=== PATIENT | male | born 1940 | race Caucasian/White ===

== ENCOUNTER 2016-10-26 08:32 | Outpatient (CLI) | payer MEDICARE, OTHER | END 2016-10-26 08:33 | disposition home or self-care (01) | DX: I77.811 Abdominal aortic ectasia (principal); D12.6 Benign neoplasm of colon, unspecified; D64.9 Anemia, unspecified; N18.3 Chronic kidney disease, stage 3 (moderate); M10.00 Idiopathic gout, unspecified site; E78.5 Hyperlipidemia, unspecified; R73.01 Impaired fasting glucose; D50.9 Iron deficiency anemia, unspecified; I65.29 Occlusion and stenosis of unspecified carotid artery; I10 Essential (primary) hypertension ==

== ENCOUNTER 2017-02-08 07:24 | Outpatient (CLI) | payer MEDICARE, OTHER ==
[2017-02-08 08:00] LABS: CALCIUM 9.5 mg/dL (8.5-10.3); CREATININE 1.3 mg/dL (0.6-1.2); POTASSIUM 4.3 mmol/L (3.5-5.0)
[2017-02-08 08:02] LABS: HEMOGLOBIN A1C 0.5 g/dL
== END 2017-02-08 07:25 | disposition home or self-care (01) ==
LOC: LAB 07:24
PROVIDERS: ATTEND Internal Medicine
DX: Z00.00 Encounter for general adult medical examination without abnormal findings (principal); E11.9 Type 2 diabetes mellitus without complications; I12.9 Hypertensive chronic kidney disease with stage 1 through stage 4 chronic kidney disease, or unspecified chronic kidney disease; N18.3 Chronic kidney disease, stage 3 (moderate); M10.00 Idiopathic gout, unspecified site; E78.5 Hyperlipidemia, unspecified; I65.29 Occlusion and stenosis of unspecified carotid artery
CPT/HCPCS: 36415; 80048; 83036

== ENCOUNTER 2017-07-24 07:26 | Outpatient (CLI) | payer MEDICARE, OTHER ==
[2017-07-24 07:46] LABS: CALCIUM 9.8 mg/dL (8.5-10.3)
[2017-07-24 07:55] LABS: HB2 TOTAL 13.3 g/dL; HEMOGLOBIN A1C 0.49 g/dL; HEMOGLOBIN A1C % 5.5 % (4.6-6.2)
== END 2017-07-24 07:27 | disposition home or self-care (01) ==
LOC: LAB 07:26
PROVIDERS: ATTEND Internal Medicine
DX: E11.22 Type 2 diabetes mellitus with diabetic chronic kidney disease (principal); N18.3 Chronic kidney disease, stage 3 (moderate)
CPT/HCPCS: 36415; 80048; 83036

== ENCOUNTER 2017-08-20 07:31 | Outpatient (CLI) | payer MEDICARE, OTHER ==
[2017-08-20 07:57] LABS: CALCIUM 9.2 mg/dL (8.5-10.3); CREATININE 1.2 mg/dL (0.6-1.2)
== END 2017-08-20 07:32 | disposition home or self-care (01) ==
LOC: LAB 07:31
PROVIDERS: ATTEND Internal Medicine
DX: I77.811 Abdominal aortic ectasia (principal); D64.9 Anemia, unspecified; I12.9 Hypertensive chronic kidney disease with stage 1 through stage 4 chronic kidney disease, or unspecified chronic kidney disease; N18.3 Chronic kidney disease, stage 3 (moderate); E11.9 Type 2 diabetes mellitus without complications; M10.00 Idiopathic gout, unspecified site; E78.5 Hyperlipidemia, unspecified; I65.29 Occlusion and stenosis of unspecified carotid artery
CPT/HCPCS: 36415; 80048

== ENCOUNTER 2017-10-12 08:12 | Outpatient (CLI) | payer MEDICARE, OTHER ==
[2017-10-12 08:24] LABS: BASOPHILS # (AUTO) 0.1 10^3/uL (0.0-0.1); BASOPHILS % (AUTO) 0.7 %; EOSINOPHILS # (AUTO) 0.3 10^3/uL (0.0-0.7); EOSINOPHILS % (AUTO) 3.3 %; HGB - HEMOGLOBIN 12.5 g/dL (14.0-18.0); LYMPHOCYTES # (AUTO) 2.5 10^3/uL (1.5-3.5); LYMPHOCYTES % (AUTO) 29.2 %; MEAN CORPUSCULAR HEMOGLOBIN 30.7 pg (27.0-31.0); MEAN CORPUSCULAR HGB CONC 33.5 g/dL (32.0-36.0); MEAN CORPUSCULAR VOLUME 91.9 fL (80.0-94.0); MEAN PLATELET VOLUME 8.6 fL (7.4-11.4); MONOCYTES # (AUTO) 0.8 10^3/uL (0.0-1.0); MONOCYTES % (AUTO) 9.8 %; NEUTROPHILS # (AUTO) 4.9 10^3/uL (1.5-6.6); PLT - PLATELET COUNT 186 10^3/uL (130-450); RED BLOOD COUNT 4.07 10^6/uL (4.70-6.10); RED CELL DISTRIBUTION WIDTH 14.5 % (12.0-15.0); WHITE BLOOD COUNT 8.6 x10^3/uL (4.8-10.8)
[2017-10-12 08:38] LABS: CREATININE,URINE 138.3 mg/dL; MICROALBUMIN,URINE 2.9 mg/dL (0-300.0)
[2017-10-12 08:40] LABS: HB2 TOTAL 13.3 g/dL; HEMOGLOBIN A1C 0.51 g/dL; HEMOGLOBIN A1C % 5.7 % (4.6-6.2)
[2017-10-12 08:41] LABS: BUN - BLOOD UREA NITROGEN 26 mg/dL (6-20); CALCIUM 9.3 mg/dL (8.5-10.3); CARBON DIOXIDE - CO2 26 mmol/L (21-32); CHLORIDE 103 mmol/L (101-111); CHOL/HDL RATIO 4.5 (<5.0); CHOLESTEROL 121 mg/dL; CREATININE 1.1 mg/dL (0.6-1.2); GFR - MDRD 65 (>89); GLUCOSE 108 mg/dL (70-100); HDL CHOLESTEROL 27 mg/dL; LDL CHOLESTEROL,CALCULATED 62 mg/dL; LDL/HDL RATIO 2.3 (<3.6); SODIUM 135 mmol/L (135-145); URIC ACID 5.1 mg/dL (2.6-7.2); VLDL CHOLESTEROL 32 mg/dL
== END 2017-10-12 08:13 | disposition home or self-care (01) ==
LOC: LAB 08:12
PROVIDERS: ATTEND Internal Medicine
DX: I77.811 Abdominal aortic ectasia (principal); D64.9 Anemia, unspecified; E11.22 Type 2 diabetes mellitus with diabetic chronic kidney disease; I12.9 Hypertensive chronic kidney disease with stage 1 through stage 4 chronic kidney disease, or unspecified chronic kidney disease; N18.3 Chronic kidney disease, stage 3 (moderate); E78.5 Hyperlipidemia, unspecified; I65.29 Occlusion and stenosis of unspecified carotid artery; M10.00 Idiopathic gout, unspecified site
CPT/HCPCS: 36415; 80048; 80061; 82043; 82570; 83036; 83721; 84550; 85025

== ENCOUNTER 2018-04-12 11:25 | Outpatient (CLI) | payer MEDICARE, OTHER ==
[2018-04-12 12:25] LABS: HB2 TOTAL 12.9 g/dL; HEMOGLOBIN A1C 0.51 g/dL; HEMOGLOBIN A1C % 5.8 % (4.6-6.2)
== END 2018-04-12 11:26 | disposition home or self-care (01) ==
LOC: LAB 11:25
PROVIDERS: ATTEND Internal Medicine
DX: Z00.00 Encounter for general adult medical examination without abnormal findings (principal); I77.811 Abdominal aortic ectasia; E11.22 Type 2 diabetes mellitus with diabetic chronic kidney disease; I12.9 Hypertensive chronic kidney disease with stage 1 through stage 4 chronic kidney disease, or unspecified chronic kidney disease; N18.3 Chronic kidney disease, stage 3 (moderate); M10.00 Idiopathic gout, unspecified site; E78.5 Hyperlipidemia, unspecified; I65.29 Occlusion and stenosis of unspecified carotid artery
CPT/HCPCS: 36415; 83036

== ENCOUNTER 2018-11-08 08:12 | Outpatient (CLI) | payer MEDICARE, OTHER ==
[2018-11-08 08:37] LABS: BASOPHILS % (AUTO) 0.6 %; EOSINOPHILS # (AUTO) 0.3 10^3/uL (0.0-0.7); EOSINOPHILS % (AUTO) 3.9 %; HGB - HEMOGLOBIN 12.3 g/dL (14.0-18.0); LYMPHOCYTES # (AUTO) 2.1 10^3/uL (1.5-3.5); LYMPHOCYTES % (AUTO) 29.4 %; MEAN CORPUSCULAR HEMOGLOBIN 30.2 pg (27.0-31.0); MEAN CORPUSCULAR HGB CONC 32.8 g/dL (32.0-36.0); MEAN CORPUSCULAR VOLUME 91.9 fL (80.0-94.0); MEAN PLATELET VOLUME 8.9 fL (7.4-11.4); MONOCYTES # (AUTO) 0.8 10^3/uL (0.0-1.0); MONOCYTES % (AUTO) 11.5 %; NEUTROPHILS # (AUTO) 3.9 10^3/uL (1.5-6.6); NEUTROPHILS % (AUTO) 54.6 %; PLT - PLATELET COUNT 195 10^3/uL (130-450); RED BLOOD COUNT 4.07 10^6/uL (4.70-6.10); RED CELL DISTRIBUTION WIDTH 14.5 % (12.0-15.0); WHITE BLOOD COUNT 7.2 x10^3/uL (4.8-10.8)
[2018-11-08 08:40] LABS: CREATININE,URINE 90.4 mg/dL; MICROALBUM/CREATININE RATIO,UR 50.9 ug/mg (<30.0); MICROALBUMIN,URINE 4.6 mg/dL (0-300.0)
[2018-11-08 08:46] LABS: BUN - BLOOD UREA NITROGEN 24 mg/dL (6-20); CALCIUM 9.3 mg/dL (8.5-10.3); CARBON DIOXIDE - CO2 25 mmol/L (21-32); CHLORIDE 102 mmol/L (101-111); CHOL/HDL RATIO 3.2 (<5.0); CHOLESTEROL 109 mg/dL; CREATININE 1.3 mg/dL (0.6-1.2); GFR - MDRD 53 (>89); GLUCOSE 97 mg/dL (70-100); HDL CHOLESTEROL 34 mg/dL; LDL CHOLESTEROL,CALCULATED 53 mg/dL; LDL/HDL RATIO 1.6 (<3.6); SODIUM 137 mmol/L (135-145); VLDL CHOLESTEROL 22 mg/dL
[2018-11-08 09:52] LABS: HB2 TOTAL 13.1 g/dL; HEMOGLOBIN A1C 0.47 g/dL; HEMOGLOBIN A1C % 5.4 % (4.6-6.2)
== END 2018-11-08 08:13 | disposition home or self-care (01) ==
LOC: LAB 08:12
PROVIDERS: ATTEND Internal Medicine
DX: I77.811 Abdominal aortic ectasia (principal); D64.9 Anemia, unspecified; N18.3 Chronic kidney disease, stage 3 (moderate); E11.22 Type 2 diabetes mellitus with diabetic chronic kidney disease; M10.00 Idiopathic gout, unspecified site; E78.5 Hyperlipidemia, unspecified; I65.29 Occlusion and stenosis of unspecified carotid artery; I12.9 Hypertensive chronic kidney disease with stage 1 through stage 4 chronic kidney disease, or unspecified chronic kidney disease
CPT/HCPCS: 36415; 80048; 80061; 82043; 82570; 82728; 83036; 83721; 84550; 85025

== ENCOUNTER 2019-05-13 09:44 | Outpatient (CLI) | payer MEDICARE, OTHER ==
[2019-05-13 12:14] LABS: HB2 TOTAL 12.8 g/dL; HEMOGLOBIN A1C 0.53 g/dL; HEMOGLOBIN A1C % 5.9 % (4.6-6.2)
== END 2019-05-13 09:45 | disposition home or self-care (01) ==
LOC: LAB 09:44
PROVIDERS: ATTEND Internal Medicine
DX: E11.9 Type 2 diabetes mellitus without complications (principal)
CPT/HCPCS: 36415; 83036

== ENCOUNTER 2019-05-14 21:40 | Emergency (ER) | payer MEDICARE, OTHER ==
--- NOTE | 2019-05-14 21:49 | ED Physician Documentation ---
History of Present Illness - Stated complaint Stated Complaint: BP CONCERN - Chief complaint Chief Complaint: Cardiac - History obtained from History obtained from: Patient - History of Present Illness Timing: Today Pain level max: 0 Pain level now: 0 - Additonal information Additional information: patient measured his blood pressure this evening and had repeated readings in the 190s-210s; he cannot recall the diastolic readings. He says he was instructed by his doctor to regularly measure his blood pressure but admits he hasn't been doing this. He is asymptomatic, and specifically denies chest pain, dyspnea, headache, visual changes, numbness, weakness. He has an appointment with his PMD tomorrow. He denies missing doses of his antihypertensive medication Review of Systems Cardiac: reports: Reviewed and negative Respiratory: denies: Dyspnea Neurologic: reports: Reviewed and negative PD PAST MEDICAL HISTORY - Past Medical History Cardiovascular: Hypertension, High cholesterol, Other Respiratory: None Endocrine/Autoimmune: None GI: Colon polyps : None HEENT: None Psych: None Musculoskeletal: None Derm: None - Past Surgical History General: Colonoscopy, Other - Present Medications Home Medications: Ambulatory Orders Medication Instructions Recorded Confirmed Allopurinol [Zyloprim] 1 ea PO DAILY 06/02/15 06/02/15 Aspirin Chewable [[place] 1 ea PO DAILY 06/02/15 06/02/15 Aspirin] Atorvastatin [Lipitor] 1 ea PO DAILY 06/02/15 06/02/15 Iron,Carbonyl/Vit C/Vit B12/FA 1 ea PO DAILY 06/02/15 06/02/15 [Iron 100 Plus Tablet] Lisinopril/Hydrochlorothiazide 1 ea PO DAILY 06/02/15 06/02/15 [Lisinopril-Hctz 10-12.5 mg Tab] - Allergies Allergies/Adverse Reactions: Allergies Allergy/AdvReac Type Severity Reaction Status Date / Time No Known Drug Allergies Allergy Verified 05/14/19 21:42 PD ED PE NORMAL - Vitals Vital signs reviewed: Yes - General General: Alert and oriented X 3, No acute distress, Well developed/nourished - Cardiac Cardiac: RRR, No murmur, No gallop, No rub - Respiratory Respiratory: No respiratory distress, Clear bilaterally - Neuro Neuro: Alert and oriented X 3, produce sorter 2-12 intact, No motor deficit, No sensory deficit, Normal speech Results - Vitals Vitals: Vital Signs - 24 hr 05/14/19 05/14/19 21:42 22:15 Temperature 36.7 C Heart Rate 58 L 74 Respiratory 16 16 Rate Blood Pressure 196/58 H 189/83 H O2 Saturation 100 98 Oxygen O2 Source Room air PD MEDICAL DECISION MAKING - ED course Complexity details: considered differential, d/w patient, d/w family Departure - Departure Disposition: 01 Home, Self Care Clinical Impression: Hypertension Condition: Good Instructions: ED Hypertension Conf Out Of Control Follow-Up: Wolf Perez MD [Primary Care Provider] - Tomorrow Discharge Date/Time: 05/14/19 22:31
[2019-05-14 22:17] VITALS: BP 189/83
[2019-05-14] MEDS ORDERED: amLODIPine 5 MG TABLET PO STA (22:23)
== END 2019-05-14 22:31 | disposition home or self-care (01) ==
LOC: ED 21:40
DX: I10 Essential (primary) hypertension (principal); E78.00 Pure hypercholesterolemia, unspecified
CPT/HCPCS: 99282; A9270

== ENCOUNTER 2020-09-03 08:00 | Outpatient (CLI) | payer MEDICARE, OTHER ==
[2020-09-03 12:09] LABS: ESTIMATED AVERAGE GLUCOSE 117 mg/dL (70-100); HEMOGLOBIN A1c% 5.7 % (4.27-6.07)
== END 2020-09-03 23:59 | disposition home or self-care (01) ==
LOC: LAB 08:00
PROVIDERS: ATTEND Internal Medicine
DX: E11.9 Type 2 diabetes mellitus without complications (principal)
CPT/HCPCS: 36415; 83036

== ENCOUNTER 2020-10-16 10:04 | Outpatient (CLI) | payer MEDICARE, OTHER ==
--- NOTE | 2020-10-16 11:41 | XRAY Report ---
PROCEDURE: Hand 3 View RT INDICATIONS: CONTUSION OF RT INDEX FINGER TECHNIQUE: 3 views of the hand(s) acquired. COMPARISON: None. FINDINGS: Bones: No fractures or dislocations. No suspicious bony lesions. And osteophyte formation through out the interphalangeal joints as well as the second metacarpophalangeal joint and first carpometacar pal joint. Soft tissues: No suspicious soft tissue calcifications. No radiopaque foreign body. IMPRESSION: No acute bony abnormality or radiopaque foreign body. Degenerative changes of the hand. Reviewed by: Que Padilla on 10/16/2020 10:40 AM [facility] Approved by: Que Padilla on 10/16/2020 10:40 AM [facility] Station ID: [id number]
== END 2020-10-16 23:59 | disposition home or self-care (01) ==
LOC: DI.N 10:04
PROVIDERS: ATTEND Physician Assistant Medical
DX: S60.021A Contusion of right index finger without damage to nail, initial encounter (principal)

== ENCOUNTER 2021-01-27 10:08 | Outpatient (CLI) | payer MEDICARE, OTHER ==
[2021-01-27 10:41] LABS: BUN - BLOOD UREA NITROGEN 17 mg/dL (6-20); CALCIUM 9.5 mg/dL (8.5-10.3); CARBON DIOXIDE - CO2 25 mmol/L (21-32); CHLORIDE 105 mmol/L (101-111); CHOL/HDL RATIO 3.9 (<5.0); CHOLESTEROL 114 mg/dL; CREATININE 1.2 mg/dL (0.6-1.2); GFR - MDRD 58 (>89); GLUCOSE 118 mg/dL (70-100); HDL CHOLESTEROL 29 mg/dL; LDL CHOLESTEROL,CALCULATED 61 mg/dL; LDL/HDL RATIO 2.1 (<3.6); POTASSIUM 4.4 mmol/L (3.5-5.0); SODIUM 139 mmol/L (135-145); TRIGLYCERIDES 119 mg/dL; URIC ACID 4.4 mg/dL (2.6-7.2); VLDL CHOLESTEROL 24 mg/dL
[2021-01-27 11:19] LABS: CREATININE,URINE 269.1 mg/dL; MICROALBUM/CREATININE RATIO,UR 331.1 ug/mg (<30.0); MICROALBUMIN,URINE 89.1 mg/dL (0-300.0)
[2021-01-27 11:55] LABS: ESTIMATED AVERAGE GLUCOSE 123 mg/dL (70-100); HEMOGLOBIN A1c% 5.9 % (4.27-6.07)
== END 2021-01-27 10:09 | disposition home or self-care (01) ==
LOC: LAB 10:08
PROVIDERS: ATTEND Internal Medicine
DX: E11.22 Type 2 diabetes mellitus with diabetic chronic kidney disease (principal); N18.30 Chronic kidney disease, stage 3 unspecified; E78.5 Hyperlipidemia, unspecified; M10.9 Gout, unspecified
CPT/HCPCS: 36415; 80048; 80061; 82043; 82570; 83036; 83721; 84550

== ENCOUNTER 2021-08-16 08:13 | Outpatient (CLI) | payer MEDICARE, OTHER ==
[2021-08-16 08:40] LABS: CREATININE,URINE 100.5 mg/dL; MICROALBUM/CREATININE RATIO,UR 172.1 ug/mg (<30.0); MICROALBUMIN,URINE 17.3 mg/dL (0-300.0)
[2021-08-16 08:42] LABS: CALCIUM 9.6 mg/dL (8.5-10.3); CREATININE 1.2 mg/dL (0.6-1.2); POTASSIUM 4.3 mmol/L (3.5-5.0)
[2021-08-16 11:19] LABS: ESTIMATED AVERAGE GLUCOSE 114 mg/dL (70-100); HEMOGLOBIN A1c% 5.6 % (4.27-6.07)
== END 2021-08-16 08:14 | disposition home or self-care (01) ==
LOC: LAB 08:13
PROVIDERS: ATTEND Internal Medicine
DX: E11.9 Type 2 diabetes mellitus without complications (principal)
CPT/HCPCS: 36415; 80048; 82043; 82570; 83036

== ENCOUNTER 2022-02-09 13:04 | Outpatient (CLI) | payer MEDICARE, OTHER ==
[2022-02-09 13:21] LABS: BASOPHILS % (AUTO) 0.5 %; EOSINOPHILS # (AUTO) 0.3 10^3/uL (0.0-0.7); EOSINOPHILS % (AUTO) 3.7 %; HCT - HEMATOCRIT 33.4 % (42.0-52.0); HGB - HEMOGLOBIN 11.3 g/dL (14.0-18.0); LYMPHOCYTES # (AUTO) 2.3 10^3/uL (1.5-3.5); LYMPHOCYTES % (AUTO) 26.3 %; MEAN CORPUSCULAR HGB CONC 33.8 g/dL (32.0-36.0); MEAN CORPUSCULAR VOLUME 91.8 fL (80.0-94.0); MEAN PLATELET VOLUME 9.9 fL (7.4-11.4); MONOCYTES # (AUTO) 0.9 10^3/uL (0.0-1.0); MONOCYTES % (AUTO) 10.8 %; NEUTROPHILS # (AUTO) 5.1 10^3/uL (1.5-6.6); NEUTROPHILS % (AUTO) 58.1 %; PLT - PLATELET COUNT 232 10^3/uL (130-450); RED BLOOD COUNT 3.64 10^6/uL (4.70-6.10); RED CELL DISTRIBUTION WIDTH 13.9 % (12.0-15.0); WHITE BLOOD COUNT 8.7 x10^3/uL (4.8-10.8)
[2022-02-09 13:49] LABS: BUN - BLOOD UREA NITROGEN 26 mg/dL (6-20); CALCIUM 9.6 mg/dL (8.5-10.3); CARBON DIOXIDE - CO2 25 mmol/L (21-32); CHLORIDE 104 mmol/L (101-111); CHOL/HDL RATIO 3.9 (<5.0); CHOLESTEROL 117 mg/dL; CREATININE 1.6 mg/dL (0.6-1.2); GFR - MDRD 42 (>89); GLUCOSE 101 mg/dL (70-100); HDL CHOLESTEROL 30 mg/dL; LDL CHOLESTEROL,CALCULATED 65 mg/dL; LDL/HDL RATIO 2.2 (<3.6); POTASSIUM 4.8 mmol/L (3.5-5.0); SODIUM 137 mmol/L (135-145); TRIGLYCERIDES 110 mg/dL; URIC ACID 4.8 mg/dL (2.6-7.2); VLDL CHOLESTEROL 22 mg/dL
[2022-02-09 14:00] LABS: CREATININE,URINE 156.4 mg/dL; MICROALBUM/CREATININE RATIO,UR 238.5 ug/mg (<30.0); MICROALBUMIN,URINE 37.3 mg/dL (0-300.0)
[2022-02-09 21:09] LABS: ESTIMATED AVERAGE GLUCOSE 123 mg/dL (70-100); HEMOGLOBIN A1c% 5.9 % (4.27-6.07)
== END 2022-02-09 13:05 | disposition home or self-care (01) ==
LOC: LAB 13:04
PROVIDERS: ATTEND Internal Medicine
DX: D64.9 Anemia, unspecified (principal); E11.22 Type 2 diabetes mellitus with diabetic chronic kidney disease; N18.30 Chronic kidney disease, stage 3 unspecified; M10.00 Idiopathic gout, unspecified site
CPT/HCPCS: 36415; 80048; 80061; 82043; 82570; 83036; 83721; 84550; 85025

== ENCOUNTER 2022-08-14 08:24 | Outpatient (CLI) | payer MEDICARE, OTHER ==
[2022-08-14 08:37] LABS: BASOPHILS # (AUTO) 0.1 10^3/uL (0.0-0.1); BASOPHILS % (AUTO) 0.6 %; EOSINOPHILS # (AUTO) 0.3 10^3/uL (0.0-0.7); HGB - HEMOGLOBIN 11.7 g/dL (14.0-18.0); LYMPHOCYTES # (AUTO) 2.4 10^3/uL (1.5-3.5); LYMPHOCYTES % (AUTO) 28.4 %; MEAN CORPUSCULAR HEMOGLOBIN 29.9 pg (27.0-31.0); MEAN CORPUSCULAR HGB CONC 31.6 g/dL (32.0-36.0); MEAN CORPUSCULAR VOLUME 94.6 fL (80.0-94.0); MEAN PLATELET VOLUME 10.5 fL (7.4-11.4); MONOCYTES # (AUTO) 0.9 10^3/uL (0.0-1.0); MONOCYTES % (AUTO) 10.3 %; NEUTROPHILS # (AUTO) 4.9 10^3/uL (1.5-6.6); NEUTROPHILS % (AUTO) 57.5 %; PLT - PLATELET COUNT 237 10^3/uL (130-450); RED BLOOD COUNT 3.91 10^6/uL (4.70-6.10); RED CELL DISTRIBUTION WIDTH 14.2 % (12.0-15.0); WHITE BLOOD COUNT 8.4 x10^3/uL (4.8-10.8)
[2022-08-14 08:57] LABS: CALCIUM 9.4 mg/dL (8.5-10.3); CREATININE 1.3 mg/dL (0.6-1.2); POTASSIUM 4.2 mmol/L (3.5-5.0)
[2022-08-14 13:24] LABS: ESTIMATED AVERAGE GLUCOSE 123 mg/dL (70-100); HEMOGLOBIN A1c% 5.9 % (4.27-6.07)
== END 2022-08-14 08:25 | disposition home or self-care (01) ==
LOC: LAB 08:24
PROVIDERS: ATTEND Internal Medicine
DX: E11.22 Type 2 diabetes mellitus with diabetic chronic kidney disease (principal); N18.30 Chronic kidney disease, stage 3 unspecified; D64.9 Anemia, unspecified
CPT/HCPCS: 36415; 80048; 83036; 83540; 84466; 85025

== ENCOUNTER 2023-03-23 09:40 | Outpatient (CLI) | payer MEDICARE, OTHER ==
[2023-03-23 09:53] LABS: BASOPHILS # (AUTO) 0.1 10^3/uL (0.0-0.1); BASOPHILS % (AUTO) 0.8 %; EOSINOPHILS # (AUTO) 0.2 10^3/uL (0.0-0.7); EOSINOPHILS % (AUTO) 2.9 %; HCT - HEMATOCRIT 31.3 % (42.0-52.0); HGB - HEMOGLOBIN 10.3 g/dL (14.0-18.0); LYMPHOCYTES % (AUTO) 25.9 %; MEAN CORPUSCULAR HEMOGLOBIN 30.8 pg (27.0-31.0); MEAN CORPUSCULAR HGB CONC 32.9 g/dL (32.0-36.0); MEAN CORPUSCULAR VOLUME 93.7 fL (80.0-94.0); MEAN PLATELET VOLUME 10.7 fL (7.4-11.4); MONOCYTES # (AUTO) 0.8 10^3/uL (0.0-1.0); MONOCYTES % (AUTO) 10.7 %; NEUTROPHILS # (AUTO) 4.5 10^3/uL (1.5-6.6); NEUTROPHILS % (AUTO) 59.3 %; PLT - PLATELET COUNT 263 10^3/uL (130-450); RED BLOOD COUNT 3.34 10^6/uL (4.70-6.10); RED CELL DISTRIBUTION WIDTH 13.8 % (12.0-15.0); WHITE BLOOD COUNT 7.6 x10^3/uL (4.8-10.8)
[2023-03-23 10:06] LABS: CREATININE,URINE 29.6 mg/dL; MICROALBUM/CREATININE RATIO,UR 479.7 ug/mg (<30.0); MICROALBUMIN,URINE 14.2 mg/dL
[2023-03-23 10:07] LABS: % IRON SATURATION 25 % (20-50); BUN - BLOOD UREA NITROGEN 16 mg/dL (6-20); CALCIUM 9.7 mg/dL (8.5-10.3); CARBON DIOXIDE - CO2 27 mmol/L (21-32); CHLORIDE 103 mmol/L (101-111); CHOL/HDL RATIO 2.9 (<5.0); CHOLESTEROL 111 mg/dL; CREATININE 1.2 mg/dL (0.6-1.3); GFR - MDRD 58 (>89); GLUCOSE 110 mg/dL (74-104); HDL CHOLESTEROL 38 mg/dL; IRON 56 ug/dL (50-212); LDL CHOLESTEROL,CALCULATED 50 mg/dL; LDL/HDL RATIO 1.3 (<3.6); POTASSIUM 4.2 mmol/L (3.5-4.5); SODIUM 136 mmol/L (135-145); TOTAL IRON BINDING CAPACITY 223 ug/dL (250-450); TRANSFERRIN 159 mg/dL (203-362); TRIGLYCERIDES 114 mg/dL (48-352); URIC ACID 4.1 mg/dL (4.4-7.6); VLDL CHOLESTEROL 23 mg/dL
[2023-03-23 11:11] LABS: ESTIMATED AVERAGE GLUCOSE 111 mg/dL (70-100); HEMOGLOBIN A1c% 5.5 % (4.27-6.07)
== END 2023-03-23 09:41 | disposition home or self-care (01) ==
LOC: LAB 09:40
DX: D64.9 Anemia, unspecified (principal); E11.22 Type 2 diabetes mellitus with diabetic chronic kidney disease; N18.30 Chronic kidney disease, stage 3 unspecified; E78.5 Hyperlipidemia, unspecified; M10.00 Idiopathic gout, unspecified site
CPT/HCPCS: 36415; 80048; 80061; 82043; 82570; 83036; 83540; 83721; 84466; 84550; 85025

== ENCOUNTER 2023-09-01 01:18 | Outpatient (CLI) | payer MEDICARE, OTHER | END 2023-09-01 01:19 | disposition critical access hospital (66) | LOC: EMS 01:18 | DX: R53.1 Weakness (principal); R11.2 Nausea with vomiting, unspecified; R50.9 Fever, unspecified | CPT/HCPCS: A0425; A0427 ==

== ENCOUNTER 2023-09-01 01:30 | Emergency (ER) | payer MEDICARE, OTHER ==
[2023-09-01] MEDS ORDERED: iohexoL-300 100 ML VIAL ONE (02:29)
[2023-09-01 02:32] LABS: BASOPHILS % (AUTO) 0.2 %; HCT - HEMATOCRIT 30.4 % (42.0-52.0); HGB - HEMOGLOBIN 9.9 g/dL (14.0-18.0); LYMPHOCYTES # (AUTO) 0.6 10^3/uL (1.5-3.5); LYMPHOCYTES % (AUTO) 4.8 %; MEAN CORPUSCULAR HEMOGLOBIN 30.2 pg (27.0-31.0); MEAN CORPUSCULAR HGB CONC 32.6 g/dL (32.0-36.0); MEAN CORPUSCULAR VOLUME 92.7 fL (80.0-94.0); MEAN PLATELET VOLUME 11.5 fL (7.4-11.4); MONOCYTES # (AUTO) 0.9 10^3/uL (0.0-1.0); MONOCYTES % (AUTO) 7.4 %; NEUTROPHILS # (AUTO) 10.9 10^3/uL (1.5-6.6); NEUTROPHILS % (AUTO) 87.3 %; PLT - PLATELET COUNT 137 10^3/uL (130-450); RED BLOOD COUNT 3.28 10^6/uL (4.70-6.10); RED CELL DISTRIBUTION WIDTH 14.5 % (12.0-15.0); WHITE BLOOD COUNT 12.5 x10^3/uL (4.8-10.8)
[2023-09-01] MEDS: FAMOTIDINE 20 MG/2 ML VIAL IVP STA (02:45)
[2023-09-01] MEDS: SODIUM CHLORIDE 0.9% 1,000 ML IV STA (02:46)
[2023-09-01 02:59] LABS: ALBUMIN 3.7 g/dL (3.2-5.5); ALBUMIN/GLOBULIN RATIO 1.4 (1.0-2.2); BILIRUBIN,TOTAL 0.8 mg/dL (0.2-1.0); CALCIUM 8.9 mg/dL (8.5-10.3); CREATININE 1.2 mg/dL (0.6-1.3); POTASSIUM 3.8 mmol/L (3.5-4.5); TOTAL PROTEIN 6.3 g/dL (6.4-8.9)
[2023-09-01] MEDS: iohexoL-300 100 ML VIAL IVP ONE (03:34)
--- NOTE | 2023-09-01 03:40 | ED Physician Documentation ---
History of Present Illness - Stated complaint Stated Complaint: WEAKNESS - Chief complaint Chief Complaint: Abd Pain - History obtained from History obtained from: Patient - Additonal information Additional information: 83yM with pmh htn, hld, daily smoker, p/w nbnb n/v X 2-3 days and subjective fever/chills. tonight he called 911 because he was too weak to get up to go to the bathroom. denies diarrhea, urinary symptoms. Dull LLQ pain, radiating diffusely. PD PAST MEDICAL HISTORY - Past Medical History Cardiovascular: Hypertension, High cholesterol, Other Respiratory: None Endocrine/Autoimmune: None GI: Colon polyps : None HEENT: None Psych: None Musculoskeletal: None Derm: None - Past Surgical History Past Surgical History: Yes General: Colonoscopy, Other - Present Medications Home Medications: Ambulatory Orders Medication Instructions Recorded Confirmed Aspirin Chewable [[facility] [place] 1 ea PO DAILY 06/02/15 06/02/15 Aspirin] Atorvastatin [Lipitor] 1 ea PO DAILY 06/02/15 06/02/15 Iron,Carb/Vit C/Vit B12/Folic 1 ea PO DAILY 06/02/15 06/02/15 [Iron 100 Plus Tablet] Lisinopril/Hydrochlorothiazide 1 ea PO DAILY 06/02/15 06/02/15 [Lisinopril-Hctz 10-12.5 mg Tab] allopurinoL [Zyloprim] 1 ea PO DAILY 06/02/15 06/02/15 - Allergies Allergies/Adverse Reactions: Allergies Allergy/AdvReac Type Severity Reaction Status Date / Time No Known Drug Allergies Allergy Verified 09/01/23 01:37 - Social History Does the pt smoke?: Yes Smoking Status: Current every day smoker Does the pt drink ETOH?: No Does the pt have substance abuse?: No - Immunizations Immunizations are current?: No Immunizations: TDAP >10years/unknown - POLST Patient has POLST: No PD ED PE NORMAL - Vitals Vital signs reviewed: Yes - General General: Alert and oriented X 3, No acute distress, Other (elderly appearing) - HEENT HEENT: Atraumatic, PERRL, EOMI, Moist mucous membranes, Pharynx benign - Neck Neck: Supple, no meningeal sign - Cardiac Cardiac: RRR - Respiratory Respiratory: No respiratory distress, Clear bilaterally - Abdomen Abdomen: Non tender, Non distended, Other (ttp in LLQ without guarding or rebound. otherwise ntnd) - Derm Derm: Normal color, Warm and dry Results - Vitals Vitals: Vital Signs - 24 hr 09/01/23 09/01/23 09/01/23 01:38 01:43 03:00 Temperature 36.3 C L 36.3 C L Heart Rate 72 72 72 Respiratory 16 16 15 Rate Blood Pressure 128/56 L 128/56 L 125/56 L O2 Saturation 95 95 92 09/01/23 05:00 Temperature Heart Rate 61 Respiratory 17 Rate Blood Pressure 116/50 L O2 Saturation 92 Oxygen O2 Source Room air - Labs Labs: Laboratory Tests 09/01/23 09/01/23 09/01/23 01:40 01:46 01:46 WBC 12.5 H RBC 3.28 L Hgb 9.9 L Hct 30.4 L MCV 92.7 MCH 30.2 MCHC 32.6 RDW 14.5 Plt Count 137 MPV 11.5 H Neut # (Auto) 10.9 H Lymph # (Auto) 0.6 L Hamilton # (Auto) 0.9 Eos # (Auto) 0.0 Baso # (Auto) 0.0 Absolute Nucleated RBC 0.00 Nucleated RBC % 0.0 Sodium 134 L Potassium 3.8 Chloride 103 Carbon Dioxide 22 Anion Gap 9.0 BUN 19 Creatinine 1.2 Estimated GFR (MDRD) 58 L Glucose 148 H Calcium 8.9 Total Bilirubin 0.8 AST 17 ALT 10 Alkaline Phosphatase 57 Total Protein 6.3 L Albumin 3.7 Globulin 2.6 Albumin/Globulin Ratio 1.4 Lipase 14 Nasal Adenovirus (PCR) NOT DETECTED Nasal B. parapertussis DNA (PCR) NOT DETECTED Nasal Coronavir 229E PCR NOT DETECTED Nasal Coronavir HKU1 PCR NOT DETECTED Nasal Coronavir NL63 PCR NOT DETECTED Nasal Coronavir OC43 PCR NOT DETECTED Nasal Enterovir/Rhinovir PCR NOT DETECTED Nasal Influenza B PCR NOT DETECTED Nasal Influenza A PCR NOT DETECTED Nasal Parainfluen 1 PCR NOT DETECTED Nasal Parainfluen 2 PCR NOT DETECTED Nasal Parainfluen 3 PCR NOT DETECTED Nasal Parainfluen 4 PCR NOT DETECTED Nasal RSV (PCR) NOT DETECTED Nasal B.pertussis DNA PCR NOT DETECTED Nasal C.pneumoniae (PCR) NOT DETECTED Brodie Human Metapneumo PCR NOT DETECTED Nasal M.pneumoniae (PCR) NOT DETECTED Nasal SARS-CoV-2 (PCR) NOT DETECTED PD Medical Decision Making - ED course ED course: 83yM presents to the ED with 2-3 days of n/v, fever,chills, and weakness. Unable to ambulate to bathroom tonight due to weakness therefore presented here. cbc, abdominal panel, u/a, rvp, ct ap ordered. Provided 1L IVF, 20mg IV pepcid. patient got IV zofran en route with improvement in nausea. Labwork remarkable for leukocytosis and anemia. WBC 12.5. Hb 9.9, down from previous 10.3 on 03/23/23. CT wet read - 5mm AAA. patient is aware of this and states he gets regular screenings and it has not changed in size recently. does not know the diameter on last screening. call placed to [facility] where he gets his vascular care. d/w Dr. Yu, patient's vascular surgeon, who states this is a chronic finding after reviewing the CT results. CT official read is concerning for possible biliary pathology given hepatobiliary congestion. plan to obtain u/s RUQ. also will need u/a results given BL perinephric stranding. Plan to endorse to incoming daytime ED MD at 7am shift change to f/u u/a and u/s results. Departure - Departure Clinical Impression: Abdominal pain, Vomiting, Weak, Chills Forms: PCP List
[2023-09-01 03:59] LABS: B. PARAPERTUSSIS- RESP PCR PAN NOT DETECTED; B. PERTUSSIS- RESP PCR PANEL NOT DETECTED; C. PNEUMONIAE- RESP PCR PANEL NOT DETECTED; CORONAVIRUS 229E-RESP PCR NOT DETECTED; CORONAVIRUS HKU1-RESP PCR NOT DETECTED; CORONAVIRUS NL63-RESP PCR NOT DETECTED; CORONAVIRUS OC43-RESP PCR NOT DETECTED; HUMAN METAPNEUMOVIRUS NOT DETECTED; INFLUENZA A- RESP PCR PANEL NOT DETECTED; INFLUENZA B - RESP PCR PANEL NOT DETECTED; M. PNEUMONIAE- RESP PCR PANEL NOT DETECTED; PARAINFLUENZA VIRUS 1 NOT DETECTED; PARAINFLUENZA VIRUS 2 NOT DETECTED; PARAINFLUENZA VIRUS 3 NOT DETECTED; PARAINFLUENZA VIRUS 4 NOT DETECTED; RHINOVIRUS/ENTEROVIRUS NOT DETECTED; RSV- RESP PCR PANEL NOT DETECTED; SARS-CoV-2 -RESP PCR PANEL NOT DETECTED
[2023-09-01 06:52] LABS: BILIRUBIN,URINE NEGATIVE (NEGATIVE); GLUCOSE, URINE (UA) NEGATIVE (NEGATIVE); KETONES,URINE (UA) NEGATIVE (NEGATIVE); LEUKOCYTE ESTERASE, URINE NEGATIVE (NEGATIVE); NITRITE,URINE NEGATIVE (NEGATIVE); OCCULT BLOOD,URINE SMALL (NEGATIVE); PH,URINE 6.5 PH (5.0-7.5); PROTEIN,URINE 100 mg/dL (NEGATIVE); UROBILINOGEN,URINE 0.2 (NORMAL) E.U./dL (NORMAL)
[2023-09-01 07:00] LABS: BACTERIA,URINE None Seen /HPF (None Seen); CLARITY,URINE CLEAR (CLEAR); RBC,URINE 0-5 /HPF (0-5); SQUAMOUS EPITHELIAL CELL,UR FEW Squamous (<= Few); WBC,URINE 0-3 /HPF (0-3)
[2023-09-01 09:23] VITALS: O2SAT 97
--- NOTE | 2023-09-01 09:33 | Ultrasound Report ---
PROCEDURE: Abdomen Limited INDICATIONS: RUQ ultrasound- hepatobiliary congestion TECHNIQUE: Real-time focused scanning was performed of the abdomen, with image documentation. COMPARISONS: Correlation is made with the accompanying imaging. FINDINGS: Liver: Liver is normal in size and homogeneous in echotexture. Numerous simple liver cysts can be se en, the largest seen on the left measuring up to 2.7 cm. Gallbladder: No gallstones or significant sludge can be seen. The gallbladder wall does not appear th ickened. There is no specific pericholecystic fluid. The sonographic Proctor's sign is negative. Biliary ducts: This patient has intrahepatic biliary ductal dilatation, particularly involving the l eft liver, which is much better demonstrated on the accompanying CT examination. Extrahepatic bile du ct caliber measures 4 mm. Normal is 6-7 mm or less in diameter, or 10 mm or less post-cholecystectom y. Pancreas: Visualized portions of the pancreas are sonographically normal. Right kidney: Normal in size and echotexture. Right kidney measures 10 cm long. No hydronephrosis or nephrolithiasis. No solid masses. No complex renal cystic lesions which require follow-up. At least one simple appearing right renal cyst can be seen. Aorta: Visualized aorta is normal in caliber at less than 3 cm. IVC: Intrahepatic inferior vena cava is patent. Miscellaneous: No free abdominal fluid. IMPRESSION: The gallbladder demonstrates a normal sonographic appearance. The known left intrahepatic biliary ductal dilatation is much better seen on the accompanying CT. - If clinically appropriate, please consider a dedicated MRCP (without and with contrast) for further evaluation (assuming that there is no contraindication). Reviewed by: Shawn Gunn MD on 09/01/2023 8:32 AM [facility] Approved by: Shawn Gunn MD on 09/01/2023 8:32 AM [facility] Station ID: [id number]
--- NOTE | 2023-09-01 09:42 | CT Report ---
PROCEDURE: Abdomen/Pelvis W INDICATIONS: LLQ pain, n/v chills CONTRAST: 100 ML OMNI 300 TECHNIQUE: After the administration of intravenous contrast, a CT scan of the abdomen and pelvis was performed. Images were recorded and evaluated at appropriate window settings. Reformats: coronal and sagittal. F or radiation dose reduction, the following was used: automated exposure control, adjustment of mA and /or kV according to patient size. COMPARISON: Correlation is made with the accompanying imaging. FINDINGS: Image quality: Diagnostic. Lower chest: Subpleural fibrotic change can be seen. Subpleural bulla formation can be seen. Calcific ation can be seen in the descending aorta. There is marked coronary artery calcification. A small to moderate hiatal hernia is incidentally noted. Liver: No solid mass. Several simple liver cysts are seen. Gallbladder and biliary tree: Potential fatty stranding can be seen adjacent to the gallbladder, whic h is not confirmed on the subsequently performed ultrasound. Spleen: There is marked intrahepatic biliary ductal dilatation seen, particularly involving the left liver. No definite extra hepatic biliary ductal dilatation can be seen. Pancreas: No pancreatic ductal dilation. Adrenals: No adrenal nodule. Kidneys and ureters: Atherosclerotic calcification can be seen of the renal arteries. The kidneys dem onstrate normal size and enhance symmetrically. There is moderate perinephric fatty stranding. Emma us renal cysts are seen, the majority of which appear simple. At least one left-sided kidney demonstr ates dense calcification along its margin. There is no hydronephrosis seen. Stomach, bowel and peritoneum: No bowel distension. No pathologic free fluid. Diverticulosis can be s een, without cele findings of active diverticulitis. Lymph nodes: No central or retroperitoneal adenopathy. 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 There is a distal abdominal aortic aneurysm measuring 4.7 cm AP, with mild mural hematoma. PELVIS Reproductive organs: Unremarkable. Bladder: No abnormal wall thickening, accounting for underdistention. Pelvic lymph nodes: No pelvic adenopathy by size criteria. Bones: No aggressive osseous abnormality. Other: Bilateral fat-containing inguinal hernias are seen. Focal L5-S1 degenerative change is seen. M ilder degenerative changes are seen elsewhere. IMPRESSION: Marked intrahepatic biliary ductal dilatation seen, particularly involving the left lobe of the liver . This is better seen on this study than on the subsequently performed ultrasound. - If clinically appropriate, please consider a dedicated MRCP (without and with contrast) for further evaluation (assuming that there is no contraindication) Moderate bilateral perinephric fat stranding can be seen. No associated hydronephrosis is seen. The c linical significance of this is uncertain, although it may be related to advanced senescent cobwebbin g. Abnormal aorta, with 2 areas of aneurysm, measuring up to 4.7 cm AP. Additional findings: Subpleural fibrotic change and subpleural bulla formation Calcification of the ascending aorta Advanced coronary artery calcification Small to moderate hiatal hernia Several simple liver cysts Numerous renal cysts, with at least one demonstrating no calcification Diverticulosis, without findings of active diverticulitis. Focal L5-S1 degenerative change Bilateral fat-containing inguinal hernias Note: No significant discrepancy from the preliminary report. Reviewed by: Shawn Gunn MD on 09/01/2023 8:41 AM [facility] Approved by: Shawn Gunn MD on 09/01/2023 8:41 AM [facility] Station ID: [id number]
--- NOTE | 2023-09-01 10:17 | ED Physician Documentation ---
ED Addendum - Addendum Addendum: 09/01/23 10:13 Sukhjinder Mukherjee is an 83-year-old male diabetic who is left in my care at shift change. He is presented to the emergency department last night unable to get out of bed secondary to weakness. He has been having vomiting for [address] scan of the abdomen pelvis was performed without a specific etiology for the vomiting being delineated. There are findings that will require follow-up. I evaluated the patient at the bedside he is able to stand and ambulate without d ifficulty now after receiving a liter of saline. I checked the patient's inferior vena cava with POCUS and found a 1.46 cm vessel nearly normal. A size that should not cause the patient symptoms. I have encouraged the patient to hydrate and have recommended they follow-up for MRCP as recommended by the radiologist. There is a concern about the possibility of biliary obstruction.This seems unlikely with a normal bilirubin and normal liver functions. There are significant findings on the scan and a concern for cholecystitis was entertained on the CT scan and this was not evident on ultrasound. Impression: Vomiting, abdominal pain, weakness, dehydration plan: As above the patient was administered saline is discharged to home in stable and improved condition with a follow-up with [facility] for further evaluation of the liver with MRCP. He has E scribed some Zofran as well for symptom control of nausea. 09/01/23 10:15
[2023-09-01 10:44] VITALS: BP 138/79
== END 2023-09-01 10:37 | disposition home or self-care (01) ==
LOC: EDUNIT# → ED 01:30
DX: R53.1 Weakness (principal); R50.9 Fever, unspecified; R11.2 Nausea with vomiting, unspecified; F17.200 Nicotine dependence, unspecified, uncomplicated; I10 Essential (primary) hypertension; E86.0 Dehydration
CPT/HCPCS: 36415; 74177; 76705; 80053; 81001; 83690; 85025; 87633; 96361; 96374; 99284; Q9967; 81003; 87086

== ENCOUNTER 2023-09-02 12:47 | Outpatient (CLI) | payer MEDICARE, OTHER | END 2023-09-02 12:48 | disposition critical access hospital (66) | LOC: EMS 12:47 | DX: R53.1 Weakness (principal); R51.9 Headache, unspecified; Z74.8 Other problems related to care provider dependency | CPT/HCPCS: A0425; A0429 ==

== ENCOUNTER 2023-09-02 13:02 | Emergency (ER) | payer MEDICARE, OTHER ==
[2023-09-02 13:12] VITALS: O2SAT 98
[2023-09-02] MEDS: SODIUM CHLORIDE 0.9% 1,000 ML IV STA (14:16)
[2023-09-02 14:18] LABS: BASOPHILS % (AUTO) 0.1 %; HCT - HEMATOCRIT 34.1 % (42.0-52.0); HGB - HEMOGLOBIN 11.1 g/dL (14.0-18.0); LYMPHOCYTES # (AUTO) 0.5 10^3/uL (1.5-3.5); LYMPHOCYTES % (AUTO) 3.8 %; MEAN CORPUSCULAR HEMOGLOBIN 29.8 pg (27.0-31.0); MEAN CORPUSCULAR HGB CONC 32.6 g/dL (32.0-36.0); MEAN CORPUSCULAR VOLUME 91.4 fL (80.0-94.0); MONOCYTES # (AUTO) 0.6 10^3/uL (0.0-1.0); MONOCYTES % (AUTO) 4.5 %; NEUTROPHILS # (AUTO) 11.4 10^3/uL (1.5-6.6); NEUTROPHILS % (AUTO) 91.1 %; PLT - PLATELET COUNT 116 10^3/uL (130-450); RED BLOOD COUNT 3.73 10^6/uL (4.70-6.10); RED CELL DISTRIBUTION WIDTH 14.2 % (12.0-15.0); WHITE BLOOD COUNT 12.5 x10^3/uL (4.8-10.8)
[2023-09-02 14:29] LABS: ALBUMIN 3.7 g/dL (3.2-5.5); ALBUMIN/GLOBULIN RATIO 1.1 (1.0-2.2); BILIRUBIN,TOTAL 0.9 mg/dL (0.2-1.0); CALCIUM 9.3 mg/dL (8.5-10.3); CREATININE 1.2 mg/dL (0.6-1.3); MAGNESIUM 1.9 mg/dL (1.7-2.3); POTASSIUM 3.7 mmol/L (3.5-4.5)
--- NOTE | 2023-09-02 14:50 | ED Physician Documentation ---
PD HPI NVD - Stated complaint Stated Complaint: FLU - Chief complaint Chief Complaint: General - History obtained from History obtained from: Patient, Family (spouse) - History of Present Illness Timing - onset: How many days ago (The patient presented yesterday to the ER for nausea and vomiting, chills, general weakness and some headache for 3 days. He was given IV fluids and a CT of the abdomen. There was concern for intrahepatic ductal dilatation. His labs were normal with LFTs and alk phos and bilirubin.) Timing - duration: Days (The patient and his state he had been ill for 3 or 4 days. He was still feeling weak and difficulty getting up after return from the ER yesterday. No further vomiting. states she is having trouble getting him up today because of weakness. No localized weakness. No trouble speaking.) Timing - details: Gradual onset, Still present Associated symptoms: Fever (subjective), Loss of appetite, Weight loss (recent weeks). No: Near syncope / syncope Similar symptoms before: Has not had sx before Recently seen: Emergency Dept (Seen yesterday for weakness with nausea and vomiting. Had labs and IV fluids and antiemetics with improvement. Still moderately weak. CT abdomen and abdominal ultrasound were performed with trista rn of intrahepatic duct dilatation. Labs were normal.) PD PAST MEDICAL HISTORY - Past Medical History Cardiovascular: Hypertension, High cholesterol, Other Respiratory: None Endocrine/Autoimmune: None GI: Colon polyps : None HEENT: None Psych: None Musculoskeletal: None Derm: None - Past Surgical History Past Surgical History: Yes General: Colonoscopy, Other - Present Medications Home Medications: Ambulatory Orders Medication Instructions Recorded Confirmed Aspirin Chewable [[place] 1 ea PO DAILY 06/02/15 09/01/23 Aspirin] Iron,Carb/Vit C/Vit B12/Folic 1 ea PO DAILY 06/02/15 06/02/15 [Iron 100 Plus Tablet] Amlodipine Besylate [Norvasc] 10 mg PO DAILY 09/01/23 09/01/23 Atorvastatin Calcium [Lipitor] 80 mg PO DAILY 09/01/23 09/01/23 Lisinopril [Zestril] 40 mg PO DAILY 09/01/23 09/01/23 Ondansetron Odt [Zofran] 4 mg TL Q6H PRN #10 tablet 09/01/23 allopurinoL [Allopurinol] 300 mg PO DAILY 09/01/23 09/01/23 metFORMIN [Glucophage] 500 mg PO BID 09/01/23 09/01/23 - Allergies Allergies/Adverse Reactions: Allergies Allergy/AdvReac Type Severity Reaction Status Date / Time No Known Drug Allergies Allergy Verified 09/02/23 13:21 - Social History Does the pt smoke?: No Smoking Status: Never smoker Does the pt drink ETOH?: No Does the pt have substance abuse?: No - Immunizations Immunizations are current?: No Immunizations: TDAP >10years/unknown - POLST Patient has POLST: No PD ED PE NORMAL - Vitals Vital signs reviewed: Yes - General General: Alert and oriented X 3, No acute distress, Well developed/nourished - Neck Neck: Supple, no meningeal sign, No adenopathy - Cardiac Cardiac: RRR, No murmur - Respiratory Respiratory: No respiratory distress, Clear bilaterally - Abdomen Abdomen: Normal bowel sounds, Soft, Non tender, Non distended - Derm Derm: Normal color, Warm and dry - Extremities Extremities: No tenderness to palpate, Normal ROM s pain, No calf tenderness / cord - Neuro Neuro: Alert and oriented X 3, 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, No motor deficit, No sensory deficit, Normal speech Results - Vitals Vitals: Vital Signs - 24 hr 09/02/23 09/02/23 13:01 17:43 Temperature 36.8 C Heart Rate 82 74 Respiratory 16 16 Rate Blood Pressure 149/67 H 136/74 H O2 Saturation 98 98 Oxygen O2 Source Room air - Labs Labs: Laboratory Tests 09/02/23 09/02/23 14:11 14:11 WBC 12.5 H RBC 3.73 L Hgb 11.1 L Hct 34.1 L MCV 91.4 MCH 29.8 MCHC 32.6 RDW 14.2 Plt Count 116 L MPV 12.0 H Neut # (Auto) 11.4 H Lymph # (Auto) 0.5 L Jewell # (Auto) 0.6 Eos # (Auto) 0.0 Baso # (Auto) 0.0 Absolute Nucleated RBC 0.00 Nucleated RBC % 0.0 Sodium 132 L Potassium 3.7 Chloride 99 L Carbon Dioxide 25 Anion Gap 8.0 BUN 21 H Creatinine 1.2 Estimated GFR (MDRD) 58 L Glucose 148 H Calcium 9.3 Magnesium 1.9 Total Bilirubin 0.9 AST 27 ALT 12 Alkaline Phosphatase 64 Total Protein 7.0 Albumin 3.7 Globulin 3.3 Albumin/Globulin Ratio 1.1 Lipase 26 PD Medical Decision Making - ED course Complexity details: re-evaluated patient (The patient is awake alert and conversant. He is sitting up in bed and gets his legs bedside without any difficulty on his own. He is drinking fluids on his own. Nursing assessed his ambulation ability with a walker and he was capable with that. She stated a bit unsteady without 1.), considered differential, d/w patient ED course: The patient has had several days of nausea with vomiting that had improved with IV fluids and antiemetic here in the ER yesterday. He had testing done to look for intra-abdominal processes with a abdominal CT. Also labs were done. There was dilation of the intrahepatic ducts noted. Ultrasound also showed this. No obvious gallstones or such. Suggestion for MRCP if clinically indicated. However the patient did not have any elevation of his LFTs, bilirubin, alk phos. Unclear the connection of the findings to his symptoms. He was feeling improved with a bit more vigor on discharge. His states however coming home he was generally weak again and she was having trouble lifting him from the couch or getting around. She called EMS again today as she was unable to care for him adequately with not being able to get him up off the couch. The patient denies any abdominal pain at this point. He denies nausea at this point. He does feel generalized weakness. Unclear whether he had a viral type intestinal illness causing his initial symptoms. No obvious findings along those lines on his CT scan. His is states concerned that he is unable to get up on his own or with her assistance. He had not fallen. We can recheck basic labs today and get some more IV fluids. We can assess his ability to ambulate and self-care after some IV fluids. We do not have MRI available at this time and again without elevation of his LFTs are not sure the indication for MRCP given just the intrahepatic duct dilatation. He was complaining of some headache but him particularly on the right side. He had not noticed any focal weakness and the does not denies him demonstrating any confusion or trouble speaking. However given some weakness generally in trouble walking along with headache, we can get a CT of the head to ensure no obvious focal process. The patient is able to get up on his own. He is somewhat unsteady walking on his own but with a walker does quite well according to nursing staff. He was able to get there on his own. This has been the concern of the that he was unable to get up. She states he seems worse at night. I cannot really assess that here but his level of function seems adequate at this time. Consideration would be a viral enteritis or such over the last several days. He is not having any abdominal pain. His alertness is good. He is able to drink fluids. I do not see any indications for need of hospitalization. Departure - Departure Disposition: Home, Self Care Clinical Impression: Nausea & vomiting, Generalized weakness, Headache Condition: Stable Record reviewed to determine appropriate education?: Yes Instructions: ED Nausea Vomiting Comments: Your CT of the head did not show any acute abnormalities. The combination of the nausea and vomiting along with some headache and general weakness does sound reasonably like a viral type illness. The testing done yesterday was negative for the main major viral type illnesses. However does not preclude a viral infection. They had done a CT scan without any obvious findings for abdominal process. Aside from some dilation of the ducts within the liver. Ultrasound had shown similar without any obvious common bile duct process or such. Your liver enzymes as well as pancreatic enzymes were normal yesterday. Similar today. You did seem to do quite well with a walker and were on your own with ambulation. We are sending went home with you. Certainly follow-up with your primary care over the next few days for recheck. Return as needed. Small frequent fluids and continue usual medications. Forms: PCP List Discharge Date/Time: 09/02/23 17:45
--- NOTE | 2023-09-02 15:55 | CT Report ---
PROCEDURE: Head WO INDICATIONS: headache and feels off balance TECHNIQUE: Noncontrast 4.5 mm thick angled axial sections acquired from the foramen magnum to the vertex. For r adiation dose reduction, the following was used: automated exposure control, adjustment of mA and/or kV according to patient size. COMPARISON: None. FINDINGS: Image quality: Diagnostic. CSF spaces: Basal cisterns are patent. No extra-axial fluid collections. Ventricles are normal in size and shape. Brain: No midline shift. No intracranial masses or hemorrhage. Snyder-white matter interface is norm al. Periventricular and subcortical white matter hypodensities are nonspecific, most consistent with chronic microvascular ischemic changes. Intracranial internal carotid siphons and vertebral arteries are calcified. Skull and face: Calvarium and visualized facial bones are intact, without suspicious lesions. Bilat eral lens replacement. Sinuses: Visualized sinuses and mastoids are clear. IMPRESSION: No acute intracranial pathology. Reviewed by: Johanny Martin MD on 09/02/2023 3:54 PM PST Approved by: Johanny Martin MD on 09/02/2023 3:54 PM PST Station ID: [id number]
[2023-09-02 17:49] VITALS: BP 136/74
== END 2023-09-02 17:45 | disposition home or self-care (01) ==
LOC: ED 13:02
DX: R53.1 Weakness (principal); R51.9 Headache, unspecified; R11.2 Nausea with vomiting, unspecified; I10 Essential (primary) hypertension; E78.00 Pure hypercholesterolemia, unspecified; Z79.82 Long term (current) use of aspirin; Z79.899 Other long term (current) drug therapy; Z79.84 Long term (current) use of oral hypoglycemic drugs
CPT/HCPCS: 36415; 80053; 83690; 83735; 85025; 99283; 99284

== ENCOUNTER 2023-09-08 08:18 | Outpatient (CLI) | payer MEDICARE, OTHER | END 2023-09-08 23:59 | disposition short-term general hospital (02) | LOC: EMS 08:18 | DX: R53.1 Weakness (principal); R59.0 Localized enlarged lymph nodes; R41.0 Disorientation, unspecified; R63.8 Other symptoms and signs concerning food and fluid intake; R42 Dizziness and giddiness | CPT/HCPCS: A0425; A0427 ==

== ENCOUNTER 2023-09-26 08:00 | Outpatient (CLI) | payer MEDICARE, OTHER ==
[2023-09-26 20:52] LABS: BASOPHILS % (AUTO) 0.3 %; EOSINOPHILS # (AUTO) 0.2 10^3/uL (0.0-0.7); HCT - HEMATOCRIT 29.4 % (42.0-52.0); HGB - HEMOGLOBIN 9.5 g/dL (14.0-18.0); LYMPHOCYTES # (AUTO) 1.3 10^3/uL (1.5-3.5); LYMPHOCYTES % (AUTO) 14.7 %; MEAN CORPUSCULAR HEMOGLOBIN 29.4 pg (27.0-31.0); MEAN CORPUSCULAR HGB CONC 32.3 g/dL (32.0-36.0); MEAN PLATELET VOLUME 10.9 fL (7.4-11.4); MONOCYTES # (AUTO) 1.4 10^3/uL (0.0-1.0); MONOCYTES % (AUTO) 16.3 %; NEUTROPHILS # (AUTO) 5.8 10^3/uL (1.5-6.6); NEUTROPHILS % (AUTO) 66.1 %; PLT - PLATELET COUNT 335 10^3/uL (130-450); RED BLOOD COUNT 3.23 10^6/uL (4.70-6.10); RED CELL DISTRIBUTION WIDTH 14.6 % (12.0-15.0); WHITE BLOOD COUNT 8.8 x10^3/uL (4.8-10.8)
[2023-09-26 22:16] LABS: ALBUMIN 3.3 g/dL (3.2-5.5); BILIRUBIN,TOTAL 0.3 mg/dL (0.2-1.0); CALCIUM 9.4 mg/dL (8.5-10.3); CREATININE 1.1 mg/dL (0.6-1.3); POTASSIUM 4.6 mmol/L (3.5-4.5); TOTAL PROTEIN 6.6 g/dL (6.4-8.9)
== END 2023-09-26 23:59 | disposition home or self-care (01) ==
LOC: LAB.R 08:00
PROVIDERS: ATTEND Registered Nurse
DX: H81.23 Vestibular neuronitis, bilateral (principal)
CPT/HCPCS: 80053; 85025

== ENCOUNTER 2023-10-18 10:18 | Outpatient (CLI) | payer MEDICARE, OTHER ==
[2023-10-18 10:35] LABS: BASOPHILS # (AUTO) 0.1 10^3/uL (0.0-0.1); BASOPHILS % (AUTO) 0.6 %; EOSINOPHILS # (AUTO) 0.2 10^3/uL (0.0-0.7); EOSINOPHILS % (AUTO) 1.5 %; HCT - HEMATOCRIT 34.9 % (42.0-52.0); HGB - HEMOGLOBIN 10.7 g/dL (14.0-18.0); LYMPHOCYTES # (AUTO) 1.8 10^3/uL (1.5-3.5); LYMPHOCYTES % (AUTO) 18.2 %; MEAN CORPUSCULAR HEMOGLOBIN 28.7 pg (27.0-31.0); MEAN CORPUSCULAR HGB CONC 30.7 g/dL (32.0-36.0); MEAN CORPUSCULAR VOLUME 93.6 fL (80.0-94.0); MEAN PLATELET VOLUME 10.5 fL (7.4-11.4); MONOCYTES # (AUTO) 0.9 10^3/uL (0.0-1.0); MONOCYTES % (AUTO) 9.1 %; NEUTROPHILS # (AUTO) 6.8 10^3/uL (1.5-6.6); NEUTROPHILS % (AUTO) 69.8 %; PLT - PLATELET COUNT 308 10^3/uL (130-450); RED BLOOD COUNT 3.73 10^6/uL (4.70-6.10); RED CELL DISTRIBUTION WIDTH 15.3 % (12.0-15.0); WHITE BLOOD COUNT 9.7 x10^3/uL (4.8-10.8)
[2023-10-18 10:46] LABS: % IRON SATURATION 16 % (20-50); ALBUMIN 3.5 g/dL (3.2-5.5); ALKALINE PHOSPHATASE 75 IU/L (42-121); ALT ALANINE AMINOTRANSFERASE 15 IU/L (10-60); AST ASPARTATE AMINOTRANSFERASE 17 IU/L (10-42); BILIRUBIN,TOTAL 0.4 mg/dL (0.2-1.0); BUN - BLOOD UREA NITROGEN 24 mg/dL (6-20); CALCIUM 10.1 mg/dL (8.5-10.3); CARBON DIOXIDE - CO2 30 mmol/L (21-32); CHLORIDE 100 mmol/L (101-111); CHOL/HDL RATIO 3.7 (<5.0); CHOLESTEROL 126 mg/dL; CREATININE 1.1 mg/dL (0.6-1.3); GFR - MDRD 64 (>89); GLUCOSE 136 mg/dL (74-104); HDL CHOLESTEROL 34 mg/dL; IRON 35 ug/dL (50-212); LDL CHOLESTEROL,CALCULATED 50 mg/dL; LDL/HDL RATIO 1.5 (<3.6); POTASSIUM 4.4 mmol/L (3.5-4.5); SODIUM 135 mmol/L (135-145); TOTAL IRON BINDING CAPACITY 216 ug/dL (250-450); TOTAL PROTEIN 7.1 g/dL (6.4-8.9); TRANSFERRIN 154 mg/dL (203-362); TRIGLYCERIDES 212 mg/dL (48-352); VLDL CHOLESTEROL 42 mg/dL
[2023-10-18 10:49] LABS: ESTIMATED AVERAGE GLUCOSE 114 mg/dL (70-100); HEMOGLOBIN A1c% 5.6 % (4.27-6.07)
[2023-10-18 11:02] LABS: THYROID STIMULATING HORMONE 1.61 uIU/mL (0.34-5.60)
== END 2023-10-18 10:19 | disposition home or self-care (01) ==
LOC: LAB 10:18
PROVIDERS: ATTEND Physician Assistant
DX: I10 Essential (primary) hypertension (principal); E78.5 Hyperlipidemia, unspecified; R63.4 Abnormal weight loss; D50.9 Iron deficiency anemia, unspecified; E11.9 Type 2 diabetes mellitus without complications; Z12.5 Encounter for screening for malignant neoplasm of prostate
CPT/HCPCS: 36415; 80053; 80061; 82607; 82728; 83036; 83540; 84443; 84466; 85025; G0103; 83721; 84153

== ENCOUNTER 2023-12-24 10:54 | Outpatient (CLI) | payer MEDICARE, OTHER ==
[2023-12-24 11:06] LABS: BASOPHILS # (AUTO) 0.1 10^3/uL (0.0-0.1); BASOPHILS % (AUTO) 0.6 %; EOSINOPHILS # (AUTO) 0.6 10^3/uL (0.0-0.7); EOSINOPHILS % (AUTO) 6.6 %; HCT - HEMATOCRIT 33.3 % (42.0-52.0); HGB - HEMOGLOBIN 10.5 g/dL (14.0-18.0); LYMPHOCYTES # (AUTO) 2.1 10^3/uL (1.5-3.5); LYMPHOCYTES % (AUTO) 24.2 %; MEAN CORPUSCULAR HEMOGLOBIN 29.3 pg (27.0-31.0); MEAN CORPUSCULAR HGB CONC 31.5 g/dL (32.0-36.0); MEAN PLATELET VOLUME 9.9 fL (7.4-11.4); MONOCYTES # (AUTO) 1.1 10^3/uL (0.0-1.0); MONOCYTES % (AUTO) 12.9 %; NEUTROPHILS # (AUTO) 4.8 10^3/uL (1.5-6.6); NEUTROPHILS % (AUTO) 55.4 %; PLT - PLATELET COUNT 221 10^3/uL (130-450); RED BLOOD COUNT 3.58 10^6/uL (4.70-6.10); RED CELL DISTRIBUTION WIDTH 16.4 % (12.0-15.0); WHITE BLOOD COUNT 8.8 x10^3/uL (4.8-10.8)
[2023-12-24 11:42] LABS: FERRITIN 99.4 ng/mL (23.9-336.2)
== END 2023-12-24 10:55 | disposition home or self-care (01) ==
LOC: LAB 10:54
PROVIDERS: ATTEND Physician Assistant
DX: D50.9 Iron deficiency anemia, unspecified (principal)
CPT/HCPCS: 36415; 82728; 83540; 84466; 85025

== ENCOUNTER 2024-01-06 08:00 | Outpatient (CLI) | payer MEDICARE, OTHER ==
[2024-01-06 15:16] LABS: FECAL OCCULT BLOOD (FIT) NEGATIVE (NEGATIVE)
== END 2024-01-06 23:59 | disposition home or self-care (01) ==
LOC: LAB.R 08:00
PROVIDERS: ATTEND Physician Assistant
DX: D64.9 Anemia, unspecified (principal)
CPT/HCPCS: 82274

== ENCOUNTER 2024-03-27 10:39 | Outpatient (CLI) | payer MEDICARE, OTHER ==
[2024-03-27 10:50] LABS: BASOPHILS # (AUTO) 0.1 10^3/uL (0.0-0.1); BASOPHILS % (AUTO) 0.6 %; EOSINOPHILS # (AUTO) 0.5 10^3/uL (0.0-0.7); EOSINOPHILS % (AUTO) 5.5 %; HCT - HEMATOCRIT 30.6 % (42.0-52.0); HGB - HEMOGLOBIN 9.7 g/dL (14.0-18.0); LYMPHOCYTES # (AUTO) 2.6 10^3/uL (1.5-3.5); LYMPHOCYTES % (AUTO) 30.8 %; MEAN CORPUSCULAR HEMOGLOBIN 30.2 pg (27.0-31.0); MEAN CORPUSCULAR HGB CONC 31.7 g/dL (32.0-36.0); MEAN CORPUSCULAR VOLUME 95.3 fL (80.0-94.0); MEAN PLATELET VOLUME 9.8 fL (7.4-11.4); MONOCYTES # (AUTO) 0.9 10^3/uL (0.0-1.0); MONOCYTES % (AUTO) 10.5 %; NEUTROPHILS # (AUTO) 4.5 10^3/uL (1.5-6.6); NEUTROPHILS % (AUTO) 52.3 %; PLT - PLATELET COUNT 215 10^3/uL (130-450); RED BLOOD COUNT 3.21 10^6/uL (4.70-6.10); RED CELL DISTRIBUTION WIDTH 14.6 % (12.0-15.0); WHITE BLOOD COUNT 8.6 x10^3/uL (4.8-10.8)
[2024-03-27 11:24] LABS: FERRITIN 118.4 ng/mL (23.9-336.2)
== END 2024-03-27 10:40 | disposition home or self-care (01) ==
LOC: LAB 10:39
PROVIDERS: ATTEND Physician Assistant
DX: D50.9 Iron deficiency anemia, unspecified (principal)
CPT/HCPCS: 36415; 82728; 83540; 84466; 85025

== ENCOUNTER 2024-03-31 15:52 | Outpatient (CLI) | payer MEDICARE, OTHER ==
[2024-03-31 16:07] LABS: ABSOLUTE RETICS # AUTO 0.055 10^6/uL (0.020-0.110); RED BLOOD COUNT 3.1 10^6/uL (4.70-6.10); RETICULOCYTE COUNT % (AUTO) 1.76 % (0.5-2.3)
[2024-03-31 16:56] LABS: ALBUMIN 4.1 g/dL (3.2-5.5); ALBUMIN/GLOBULIN RATIO 1.7 (1.0-2.2); BILIRUBIN,TOTAL 0.3 mg/dL (0.2-1.0); CALCIUM 9.6 mg/dL (8.5-10.3); CREATININE 1.4 mg/dL (0.6-1.3); POTASSIUM 4.8 mmol/L (3.5-4.5); TOTAL PROTEIN 6.5 g/dL (6.4-8.9)
== END 2024-03-31 15:53 | disposition home or self-care (01) ==
LOC: LAB 15:52
PROVIDERS: ATTEND Physician Assistant
DX: N18.2 Chronic kidney disease, stage 2 (mild) (principal); D64.9 Anemia, unspecified
CPT/HCPCS: 36415; 80053; 82607; 82746; 83615; 85045